=== PATIENT | female | born 1980 | race Caucasian/White ===

== ENCOUNTER 2019-01-30 06:35 | Day surgery (SDC) | payer MEDICAID ==
[~2019-01-30 06:35] MED LIST: Lactated Ringers 1,000 ML IV SCH; Sodium Chloride 0.9% 10 ML SDV IV PRN; Sodium Chloride 0.9% 10 ML Syringe FLUSH PRN; Sodium Chloride 0.9% 2.5 ML Syringe FLUSH PRN; ceFAZolin 2 GM in Premix Bag 1 BAG IV ONE
[2019-01-30] MEDS ORDERED: Bupivacaine 0.5% 10 ML SDV ONE (07:28)
--- NOTE | 2019-01-30 07:42 | PCM.PREANE ---
Preanesthetic Assessment - Anesthesia/Transfusion/Family Hx Anesthesia History: No Prior Anesthesia Transfusion History: No Prior Transfusion(s) - Review of Systems General: No Symptoms Pulmonary: No Symptoms Cardiovascular: No Symptoms Gastrointestinal: No Symptoms Neurological: No Symptoms Other: Reports: None - Physical Assessment NPO Status Date: 01/30/19 NPO Status Time: 00:00 O2 Sat by Pulse Oximetry: 96 Respiratory Rate: 16 Vital Signs: Last Vital Signs Temp 36.6 C 01/30/19 07:21 Pulse 80 01/30/19 07:21 Resp 16 01/30/19 07:21 BP 125/75 01/30/19 07:21 Pulse Ox 96 01/30/19 07:21 Height: 1.68 m Weight: 81.647 kg ASA Class: 2 Mental Status: Alert & Oriented x3 Airway Class: Mallampati = 2 Dentition: Reports: Normal Dentition Thyro-Mental Finger Breadths: 3 Mouth Opening Finger Breadths: 3 ROM/Head Extension: Full Lungs: Clear to Auscultation, Normal Respiratory Effort Cardiovascular: Regular Rate, Regular Rhythm - Lab Values: Laboratory Last Values Urine HCG, Qual NEGATIVE (NEGATIVE) 01/30/19 06:50 - Allergies Allergies/Adverse Reactions: Allergies Allergy/AdvReac Type Severity Reaction Status Date / Time Sulfa (Sulfonamide Allergy Blisters Verified 01/27/19 12:58 Antibiotics) - Acknowledgements Anesthesia Type Planned: General Anesthesia Pt an Appropriate Candidate for the Planned Anesthesia: Yes Alternatives and Risks of Anesthesia Discussed w Pt/Guardian: Yes Pt/Guardian Understands and Agrees with Anesthesia Plan: Yes PreAnesthesia Questionnaire - Past Health History Medical/Surgical History: Denies Medical/Surgical History HEENT History: Reports: Impaired Vision (Wears contact lenses), Other (See Below ) ( has been complaining of bilateral eye pain which occurs intermittently: sometimes it is the right eye and other times it is the left.) Cardiovascular History: Reports: None Respiratory History: Reports: Other (See Below) (chronic tobacco use for 27 years) Other Respiratory History: uri one week ago Gastrointestinal History: Reports: None Musculoskeletal History: Reports: Other (See Below) Other Musculoskeletal History: rt knee pain, right knee instability, able to walk Neurological History: Reports: None Endocrine/Metabolic History: Reports: None Hematologic History: Reports: None - Past Surgical History Head Surgeries/Procedures: Reports: None - SUBSTANCE USE Smoking Status *Q: Current Every Day Smoker (for 27 years) Tobacco Use Within Last Twelve Months: Cigarettes Days Per Week of Alcohol Use: 1 (occasional etoh) Recreational Drug Use History: No - HOME MEDS Home Medications: Home Meds Naproxen Sodium [Aleve] 1 - 2 tab PO ASDIRECTED PRN 12/25/18 [History] - CURRENT (IN HOUSE) MEDS Current Meds: Current Medications Lactated Ringer's (Ringers, Lactated) 1,000 mls @ 125 mls/hr IV ASDIRECTED CHAKA Sodium Chloride (Saline Flush) 10 ml FLUSH ASDIRECTED PRN PRN Reason: Keep Vein Open Sodium Chloride (Saline Flush) 2.5 ml FLUSH ASDIRECTED PRN PRN Reason: Keep Vein Open Sodium Chloride (Normal Saline) 10 ml IV ASDIRECTED PRN PRN Reason: IV Use Discontinued Medications Bupivacaine HCl (Sensorcaine-Mpf 0.5%) Confirm Administered Dose 10 ml .ROUTE .STK-MED ONE Stop: 01/30/19 07:29 Cefazolin Sodium/Dextrose 2 gm (/ Premix) 50 mls @ 100 mls/hr IV ONETIME ONE Stop: 01/27/19 10:42 Lidocaine HCl (Xylocaine-Mpf 1%) Confirm Administered Dose 10 mls @ as directed .ROUTE .STK-MED ONE Stop: 01/30/19 07:30
[2019-01-30] MEDS ORDERED: Propofol 200 MG/20 ML SDV ONE (07:43)
[2019-01-30] MEDS ORDERED: fentaNYL 100 MCG/2 ML SDV ONE (07:43)
[2019-01-30] MEDS ORDERED: Midazolam 1 MG/ML 2 ML SDV ONE (07:43)
[2019-01-30] MEDS ORDERED: Lidocaine 2% 5 ML SDV ONE (07:43)
[2019-01-30] MEDS ORDERED: Sodium Chloride 0.9% 20 ML ONE (08:02)
[2019-01-30] MEDS ORDERED: ceFAZolin 1 GM Vial ONE (08:02)
--- NOTE | 2019-01-30 08:35 | PCM.OPNOTE ---
- General Post-Op/Procedure Note Date of Surgery/Procedure: 01/30/19 Operative Procedure(s): excision lower left back mass and skin tag removal left buttock Findings: sebaceous cyst left lower back and skin tag left buttock Pre Op Diagnosis: left lower back mass and left buttock skin tag Post-Op Diagnosis: same Anesthesia Technique: MAC Primary Surgeon: Patito Rocha Volumetric Weigher: Leslie Martinez Pathology: left lower back mass Fluid Replacement, Intraop: 800 EBL in mLs: 5 Condition: Good
--- NOTE | 2019-01-30 08:51 | PCM.POSTAN ---
POST ANESTHESIA ASSESSMENT - MENTAL STATUS Mental Status: Alert, Oriented - RESPIRATORY Respiratory Status: Respiratory Rate WNL, Airway Patent, O2 Saturation Stable - CARDIOVASCULAR CV Status: Pulse Rate WNL, Blood Pressure Stable - GASTROINTESTINAL GI Status: No Symptoms - PAIN Pain Score: 0 - POST OP HYDRATION Hydration Status: Adequate & Stable - OBSERVATIONS Free Text/Narrative:: The patient tolerated the procedure well. There were no apparent anesthetic complications at this time.
--- NOTE | 2019-01-30 09:18 | PCM48HPAN ---
Post Anesthesia Note - EVALUATION WITHIN 48HRS OF ANESTHETIC Vital Signs in Normal Range: Yes Patient Participated in Evaluation: Yes Respiratory Function Stable: Yes Airway Patent: Yes Cardiovascular Function Stable: Yes Hydration Status Stable: Yes Pain Control Satisfactory: Yes Nausea and Vomiting Control Satisfactory: Yes Mental Status Recovered: Yes Resp Rate: 12 - COMMENTS/OBSERVATIONS Free Text/Narrative:: The patient has no complaints at this time, and wants to go home. Discharge per criteria.
--- NOTE | 2019-01-31 22:10 | OR ---
SURGEON: RONNY SIERRA MD DATE OF PROCEDURE: 01/30/2019 PREOPERATIVE DIAGNOSIS: Left back mass, left buttock skin tag. POSTOPERATIVE DIAGNOSIS: Left back mass, left buttock skin tag. PROCEDURE PERFORMED: Excision of left back mass, excision of left buttock skin tag. POWERED BRIDGE SPECIALIST: Chef German: Leslie Martinez, Integrated Program Teacher. FLUIDS: 800 mL of crystalloid. ESTIMATED BLOOD LOSS: 5 mL. FINDINGS: 2 cm cystic lesion of the left back, small left buttock skin tag. COMPLICATIONS: None. INDICATIONS: The patient is a 38-year-old female who came to my clinic with a left back mass as well as a left buttock skin tag. We discussed excision of these in the operating room. I explained the procedure, expected perioperative course, and risks including bleeding, infection, or damage to surrounding structures. The patient verbalized understanding and wishes to proceed. PROCEDURE IN DETAIL: The patient was brought into the OR and placed on the OR cart in a right lateral decubitus position. A time-out was completed verifying the patient's name, age, date of , allergies, and procedure to be performed. Monitored anesthesia care was induced. The left back mass was prepped and draped in usual standard fashion. I anesthetized the area over the left back mass with 1% lidocaine plain. A horizontal incision was made using a 15 blade over the top of this mass. Cautery was used to dissect down to the level of the subcutaneous fat layer. Upon reaching the subcutaneous fat layer, I noticed the mass appeared to be a sebaceous cyst. Using a combination of cautery and sharp dissection, I dissected the cyst free from the surrounding structures. I then removed it and placed it on the back table. It measured 2 cm in diameter. It was sent to Pathology, labeled as left back mass. Electrocautery was used to achieve hemostasis. I irrigated the wound copiously with normal saline. The wound was then closed with interrupted 3-0 Vicryl sutures in the subcutaneous fat layer and the skin was closed with a running 4-0 Monocryl stitch. Steri-Strips and sterile dressings were applied. I then turned my attention to the left buttock skin tag. We prepped and draped the area. Given how small the skin tag was, it was grasped with an Adson grasper and excised sharply using a 15 blade. Cautery was used to achieve hemostasis. A Steri-Strip was placed over the wound to bring the edges together. Sterile dressing was applied. The patient tolerated the procedure well and was transferred to the PACU in stable condition. JOCELYNE NAIDU /[id number]
== END 2019-01-30 09:20 | disposition home or self-care (01) ==
LOC: MW.SDS 06:35
PROVIDERS: ATTEND Surgery
DX: L72.3 Sebaceous cyst (principal); F17.200 Nicotine dependence, unspecified, uncomplicated; Z79.1 Long term (current) use of non-steroidal anti-inflammatories (NSAID); Z88.2 Allergy status to sulfonamides
CPT/HCPCS: 11200; 11402; 12031; 81025; J0690; J2001; J2250; J2704; J3010; J7120; J3490

== ENCOUNTER 2019-02-12 07:24 | Day surgery (SDC) | payer MEDICAID ==
[~2019-02-12 07:24] MED LIST changes: +Lidocaine 2% 5 ML SDV ONE; +Midazolam 1 MG/ML 2 ML SDV ONE; +Ondansetron 4 MG/2 ML SDV ONE; +Propofol 200 MG/20 ML SDV ONE; -Sodium Chloride 0.9% 10 ML SDV IV PRN; -Sodium Chloride 0.9% 10 ML Syringe FLUSH PRN; -Sodium Chloride 0.9% 2.5 ML Syringe FLUSH PRN; -ceFAZolin 2 GM in Premix Bag 1 BAG IV ONE; +fentaNYL 250 MCG/5 ML SDV ONE
[2019-02-12] MEDS ORDERED: Lidocaine 1% 20 ML MDV ONE (07:30)
[2019-02-12] MEDS ORDERED: Acetaminophen/HYDROcodone 325-5 MG Tab PO PRN (08:00)
[2019-02-12] MEDS ORDERED: ceFAZolin 2 GM in Premix Bag 1 BAG IV SCH (08:00)
--- NOTE | 2019-02-12 08:20 | PCM.PREANE ---
Preanesthetic Assessment - Anesthesia/Transfusion/Family Hx Anesthesia History: Prior Anesthesia Without Reaction Family History of Anesthesia Reaction: No Transfusion History: No Prior Transfusion(s) Intubation History: Unknown - Review of Systems General: No Symptoms Pulmonary: No Symptoms Cardiovascular: No Symptoms Gastrointestinal: No Symptoms Neurological: No Symptoms Other: Reports: None - Physical Assessment Height: 1.68 m Weight: 82.554 kg ASA Class: 2 Mental Status: Alert & Oriented x3 Airway Class: Mallampati = 2 Dentition: Reports: Normal Dentition (multiple veneers upper front teeth) Thyro-Mental Finger Breadths: 3 Mouth Opening Finger Breadths: 3 ROM/Head Extension: Full Lungs: Clear to Auscultation, Normal Respiratory Effort Cardiovascular: Regular Rate, Regular Rhythm - Lab Values: Laboratory Last Values Urine HCG, Qual NEGATIVE (NEGATIVE) 02/12/19 07:40 - Allergies Allergies/Adverse Reactions: Allergies Allergy/AdvReac Type Severity Reaction Status Date / Time Sulfa (Sulfonamide Allergy Blisters Verified 02/07/19 09:49 Antibiotics) - Blood Blood Available: No - Anesthesia Plan Pre-Op Medication Ordered: None - Acknowledgements Anesthesia Type Planned: General Anesthesia Pt an Appropriate Candidate for the Planned Anesthesia: Yes Alternatives and Risks of Anesthesia Discussed w Pt/Guardian: Yes Pt/Guardian Understands and Agrees with Anesthesia Plan: Yes PreAnesthesia Questionnaire - Past Health History Medical/Surgical History: Denies Medical/Surgical History HEENT History: Reports: Other (See Below) Other HEENT History: wears glasses/contacts Cardiovascular History: Reports: None Respiratory History: Reports: None Other Respiratory History: uri one week ago Gastrointestinal History: Reports: None Genitourinary History: Reports: None 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: Musculoskeletal History: Reports: Other (See Below) Other Musculoskeletal History: rt knee pain Neurological History: Reports: None Psychiatric History: Reports: None Endocrine/Metabolic History: Reports: None Hematologic History: Reports: None Immunologic History: Reports: None Oncologic (Cancer) History: Reports: None Dermatologic History: Reports: None - Past Surgical History Head Surgeries/Procedures: Reports: None HEENT Surgical History: Reports: None Cardiovascular Surgical History: Reports: None Respiratory Surgical History: Reports: None GI Surgical History: Reports: None Female Surgical History: Reports: None Endocrine Surgical History: Reports: None Neurological Surgical History: Reports: None Musculoskeletal Surgical History: Reports: Other (See Below) Other Musculoskeletal Surgeries/Procedures:: cyst removed from back - SUBSTANCE USE Smoking Status *Q: Light Tobacco Smoker (8 cigarettes per day) Tobacco Use Within Last Twelve Months: Cigarettes Recreational Drug Use History: No - HOME MEDS Home Medications: Home Meds Naproxen Sodium [Aleve] 1 - 2 tab PO ASDIRECTED PRN 12/25/18 [History] Diclofenac Sodium [Voltaren] 50 mg PO ASDIRECTED PRN 02/07/19 [History] - CURRENT (IN HOUSE) MEDS Current Meds: Current Medications Hydrocodone Bitart/Acetaminophen ([place] 325-5 Mg) 1 - 2 tab PO Q4H PRN PRN Reason: Pain Cefazolin Sodium/Dextrose 2 gm (/ Premix) 50 mls @ 100 mls/hr IV ONCALL CHAKA Lactated Ringer's (Ringers, Lactated) 1,000 mls @ 100 mls/hr IV ASDIRECTED CHAKA Discontinued Medications Fentanyl (Sublimaze) Confirm Administered Dose 250 mcg .ROUTE .STK-MED ONE Stop: 02/12/19 07:14 Lidocaine (Xylocaine-Mpf 2%) Confirm Administered Dose 5 ml .ROUTE .STK-MED ONE Stop: 02/12/19 07:14 Lidocaine HCl (Xylocaine 1%) Confirm Administered Dose 20 ml .ROUTE .STK-MED ONE Stop: 02/12/19 07:31 Midazolam HCl (Versed 1 Mg/Ml) Confirm Administered Dose 2 mg .ROUTE .STK-MED ONE Stop: 02/12/19 07:14 Ondansetron HCl (Zofran) Confirm Administered Dose 4 mg .ROUTE .STK-MED ONE Stop: 02/12/19 07:14 Propofol (Diprivan 20 Ml) Confirm Administered Dose 200 mg .ROUTE .STK-MED ONE Stop: 02/12/19 07:14
[2019-02-12] MEDS ORDERED: Glycopyrrolate 0.2 MG/ML SDV ONE ×2 (09:17→09:20)
[2019-02-12] MEDS ORDERED: Ketorolac 30 MG/ML SDV ONE (09:37)
[2019-02-12] MEDS ORDERED: Albuterol 0.083% 2.5 MG/3 ML Neb Soln NEB PRN (09:48)
[2019-02-12] MEDS ORDERED: fentaNYL 100 MCG/2 ML SDV IVPUSH PRN (09:48)
[2019-02-12] MEDS ORDERED: EPINEPHrine 1:10,000 1 MG/10 ML Syringe IVPUSH PRN (09:48)
[2019-02-12] MEDS ORDERED: Naloxone 0.4 MG/ML Syringe IVPUSH PRN (09:48)
[2019-02-12] MEDS ORDERED: Atropine 0.1 MG/ML 10 ML Syringe IVPUSH PRN ×2 (09:48)
[2019-02-12] MEDS ORDERED: 50% Dextrose in Water 50 ML Syringe IVPUSH PRN (09:48)
--- NOTE | 2019-02-12 10:04 | PCM.OPNOTE ---
- General Post-Op/Procedure Note Date of Surgery/Procedure: 02/12/19 Operative Procedure(s): R knee scope with PMM Post-Op Diagnosis: R knee ACL tear, DJD R knee, R knee medial meniscus tear Anesthesia Technique: General LMA Primary Surgeon: Jennifer Powers Business Initiatives Manager: Jose Alberto Snell Jr EBL in mLs: 5 Condition: Good Free Text/Narrative:: tt=26 min #[id number]
--- NOTE | 2019-02-12 10:30 | PCM.POSTAN ---
POST ANESTHESIA ASSESSMENT - MENTAL STATUS Mental Status: Alert, Oriented - RESPIRATORY Respiratory Status: Respiratory Rate WNL, Airway Patent, O2 Saturation Stable - CARDIOVASCULAR CV Status: Pulse Rate WNL, Blood Pressure Stable - GASTROINTESTINAL GI Status: No Symptoms - PAIN Pain Score: 2 - POST OP HYDRATION Hydration Status: Adequate & Stable - OBSERVATIONS Free Text/Narrative:: no anesthesia problems
[2019-02-12] MEDS ORDERED: Dexamethasone 4 MG/ML 5 ML MDV ONE (10:46)
--- NOTE | 2019-02-12 10:59 | PCM48HPAN ---
Post Anesthesia Note - EVALUATION WITHIN 48HRS OF ANESTHETIC Vital Signs in Normal Range: Yes Patient Participated in Evaluation: Yes Respiratory Function Stable: Yes Airway Patent: Yes Cardiovascular Function Stable: Yes Hydration Status Stable: Yes Pain Control Satisfactory: Yes Nausea and Vomiting Control Satisfactory: Yes Mental Status Recovered: Yes Resp Rate: 15 - COMMENTS/OBSERVATIONS Free Text/Narrative:: no anesthesia problems
--- NOTE | 2019-02-12 12:58 | OR ---
SURGEON: Jennifer Powers MD DATE OF PROCEDURE: 02/12/2019 PREOPERATIVE DIAGNOSES: 1. Right knee anterior cruciate ligament tear. 2. Right knee medial meniscus tear. POSTOPERATIVE DIAGNOSES: 1. Right knee anterior cruciate ligament tear. 2. Right knee medial meniscus tear. 3. Degenerative joint disease, right knee. PROCEDURES: Right knee arthroscopy with partial medial meniscectomy. MUCK FARMER: Elier Snell DO, PGY-2. ANESTHESIA: General. ESTIMATED BLOOD LOSS: 5 mL. TOURNIQUET TIME: 26 minutes. COMPLICATIONS: None. DVT PROPHYLAXIS: Not indicated. IMPLANTS USED: None. BRIEF HISTORY: Sanjuana is a 38-year-old female, who sustained an injury to her right knee. An MRI did confirm a tear of the ACL along with the meniscus tear. She continued to have symptoms of instability. At that time, I recommended surgical treatment. The risks and goals of the procedure were discussed with the patient and were documented preoperatively. She agreed to proceed. DESCRIPTION OF PROCEDURE: The patient was properly identified and brought to the operating room. She was transferred from the OR cart and placed on the operating room table in supine position. General anesthesia was administered. After adequate anesthesia was obtained, a well-padded tourniquet was applied to the right lower extremity. The right lower extremity was then prepped in standard fashion using ChloraPrep solution. It was then sterilely draped. A time-out was performed to ensure correct site and procedure. Preoperative antibiotics were given. The surgical site had been marked preoperatively. An Esmarch was used to exsanguinate the right lower extremity and the tourniquet was inflated to 250 mmHg. A lateral portal arthrotomy was established. Blunt trocar and cannula were introduced into the suprapatellar space. Camera, inflow, and outflow were assembled. No significant synovitis was noted. The patellofemoral joint was visualized. Mild degenerative changes were noted along the trochlear groove, consistent with grade 2 chondromalacia. The patella appeared to track centrally. There was abundant fat pad, which appeared to cause some impingement with flexion and extension of the knee. I then extended down the lateral gutter. No loose bodies were identified. As I extended down the medial gutter, a large fragment of medial meniscus was identified. A medial portal arthrotomy was then established. The medial compartment was entered. The meniscus was probed and there was found to be a large tear of the medial meniscus with a fragment that extended into the medial gutter. The remainder of the meniscus along the posterior horn appeared intact and stable. Using a combination of biters and shaver, the meniscus was resected back to a stable remnant. The remainder of the meniscus appeared intact. The chondral surfaces showed some loose fragments along the lateral aspect of the medial femoral condyle. A medial femoral condyle chondroplasty was also performed. Diffuse grade 2 chondromalacia was noted along the weightbearing surface. Similar findings were noted on the medial tibial plateau. I then entered the notch. A portion of the fat pad was resected for visualization. There was no attachment of the ACL to the lateral femoral condyle. It appeared to be scarred to the PCL. The PCL appeared intact. I then entered the lateral compartment. She had a large full-thickness area of cartilage loss over the weightbearing surface of the lateral femoral condyle. This measured approximately 7 mm x 10 mm. Only a small remaining layer of cartilage remained over the subchondral bone, consistent with grade 3 chondromalacia. The lateral tibial plateau showed diffuse grade 2 chondromalacia. The meniscus did have minor degenerative fraying along the central portion of the meniscus, however, it was probed and found to be intact. I then returned to the patellofemoral joint. A portion of the fat pad was resected and no further impingement was noted. Instruments were then removed from the knee. The portal sites were closed with 3-0 nylon. 1% lidocaine was injected along the portal tracts. Xeroform gauze was placed over the wound and a bulky dressing was applied. The tourniquet was then deflated. She was awakened from her anesthetic and transferred back to the operating room cart. She was brought to recovery room in stable condition. All needle and sponge counts were correct. ESME / EVANGELISTA /[id number]
== END 2019-02-12 11:10 | disposition home or self-care (01) ==
LOC: MW.SDS 07:24
PROVIDERS: ATTEND Orthopaedic Surgery
DX: S83.231A Complex tear of medial meniscus, current injury, right knee, initial encounter (principal); S83.511A Sprain of anterior cruciate ligament of right knee, initial encounter; M17.11 Unilateral primary osteoarthritis, right knee; M94.261 Chondromalacia, right knee; M25.861 Other specified joint disorders, right knee; F17.210 Nicotine dependence, cigarettes, uncomplicated; X58.XXXA Exposure to other specified factors, initial encounter; Z88.2 Allergy status to sulfonamides
CPT/HCPCS: 81025; A9270-GY; J1100; J1885; J2001; J2250; J2405; J2704; J3010; J3490; J7120